=== PATIENT | male | born 1955 | race Caucasian/White ===

== ENCOUNTER 2017-05-04 07:36 | Inpatient (IN) | payer OTHER ==
[~2017-05-04] VITALS: Ht 160 cm; Wt 58.0 kg
[2017-05-04 08:33] LABS: BASOPHIL % 0.3 % (0-2); PLATELET COUNT 353 x10^3mcL (130-400)
[2017-05-04 08:35] LABS: RED CELL DISTRIBUTION WIDTH 16.1 % (11.5-14.5)
[2017-05-04] MEDS ORDERED: NATURAL IRON65 MG PO (08:43)
[2017-05-04] MEDS ORDERED: COLACE100 MG PO (08:43)
[2017-05-04] MEDS ORDERED: HYD1C TOP (08:45)
[2017-05-04 08:48] LABS: CALCIUM 7.7 mg/dL (8.5-10.1); CARBON DIOXIDE 26.9 mmol/L (21-32); CHLORIDE SERUM 108 mmol/L (98-107); CREATININE SERUM 0.8 mg/dL (0.7-1.3); GFR1 > 60 mL/min; GLUCOSE SERUM 124 mg/dL (74-106); POTASSIUM SERUM 4.6 mmol/L (3.5-5.1); SODIUM SERUM 142 mmol/L (136-145)
[2017-05-04 08:53] LABS: ALKALINE PHOSPHATASE 93 U/L (46-116); ALT/SGPT 23 U/L (16-63); AST/SGOT 20 U/L (15-37)
[2017-05-04 08:57] LABS: ALBUMIN 2.5 g/dL (3.4-5.0); BILIRUBIN TOTAL 0.1 mg/dL (0.20-1.00); TOTAL PROTEIN, SERUM 5.6 g/dL (6.4-8.2)
[2017-05-04 09:23] LABS: rbc morphology (normal/abnorm) ABNORMAL (NORMAL)
[2017-05-04 10:49] VITALS: BP 105/34
[2017-05-04 12:51] VITALS: BP 103/43
[2017-05-04 17:29] VITALS: BP 105/48
[2017-05-04 18:40] VITALS: BP 124/68
[2017-05-04 20:44] VITALS: BP 135/60
[2017-05-05 05:41] VITALS: BP 98/52
[2017-05-05 10:46] VITALS: BP 95/58
[2017-05-05 12:36] LABS: BASOPHIL % 1.1 % (0-2); PLATELET COUNT 338 x10^3mcL (130-400)
[2017-05-05 12:43] VITALS: BP 101/60
[2017-05-05 13:01] LABS: RED CELL DISTRIBUTION WIDTH 15.9 % (11.5-14.5)
[2017-05-05 13:06] LABS: CARBON DIOXIDE 28.8 mmol/L (21-32); CHLORIDE SERUM 109 mmol/L (98-107); CREATININE SERUM 0.7 mg/dL (0.7-1.3); GFR1 > 60 mL/min; GLUCOSE SERUM 87 mg/dL (74-106); SODIUM SERUM 143 mmol/L (136-145)
[2017-05-05 18:04] VITALS: BP 117/64
[2017-05-05 21:23] VITALS: BP 114/64
[2017-05-05 22:35] VITALS: Ht 160 cm; Wt 58.0 kg
[2017-05-06 05:46] VITALS: BP 106/59
[2017-05-06 06:06] LABS: CALCIUM 7.8 mg/dL (8.5-10.1); CARBON DIOXIDE 30.7 mmol/L (21-32); CHLORIDE SERUM 108 mmol/L (98-107); CREATININE SERUM 0.8 mg/dL (0.7-1.3); GFR1 > 60 mL/min; GLUCOSE SERUM 92 mg/dL (74-106); POTASSIUM SERUM 4.3 mmol/L (3.5-5.1); SODIUM SERUM 140 mmol/L (136-145)
[2017-05-06 07:10] LABS: PLATELET COUNT 346 x10^3mcL (130-400)
[2017-05-06 07:17] LABS: BASOPHIL % 2.1 % (0-2); RED CELL DISTRIBUTION WIDTH 15.8 % (11.5-14.5)
[2017-05-06 09:58] VITALS: BP 104/57
[2017-05-06 13:02] VITALS: BP 96/43
[2017-05-06 15:05] VITALS: BP 96/43
== END 2017-05-06 16:07 | disposition short-term general hospital (02) | DRG 841 ==
LOC: ED 07:36 → DU 09:41
PROVIDERS: Emergency Medicine; Internal Medicine Gastroenterology; ADMIT Internal Medicine
PROC: 30233N1 Transfusion of Nonautologous Red Blood Cells into Peripheral Vein, Percutaneous Approach (ICD-10-PCS; 2017-05-04)
PROC: 0D778ZZ Dilation of Stomach, Pylorus, Via Natural or Artificial Opening Endoscopic (ICD-10-PCS; principal; 2017-05-04 14:00)
PROC: 0DB68ZX Excision of Stomach, Via Natural or Artificial Opening Endoscopic, Diagnostic (ICD-10-PCS; 2017-05-04 14:00)
DX: C85.99 Non-Hodgkin lymphoma, unspecified, extranodal and solid organ sites (principal); K31.1 Adult hypertrophic pyloric stenosis; K92.2 Gastrointestinal hemorrhage, unspecified; D50.0 Iron deficiency anemia secondary to blood loss (chronic)
CPT/HCPCS: 43235; C1769; J1200; J1610; J2250; J2270; J2310; J3010; J3490; J7030; J7040; P9016; Q0092; Q9966; Q9967